=== PATIENT | male | born 1980 | race Caucasian/White ===

== ENCOUNTER 2018-11-12 20:51 | Emergency (ER) | payer BC ==
[2018-11-12 21:07] VITALS: BP 132/67
[2018-11-12] MEDS ORDERED: Tetracaine 0.5% OPTH.SOL 4 ML* 1 DROP BTL RIGHT EYE ONE (21:13)
[2018-11-12] MEDS ORDERED: Fluorescein Sodium TOPICAL* 1 MG TEST STRIP OPHTHALMIC ONE (21:15)
[2018-11-12] MEDS ORDERED: Erythromycin OPTH OINT* APPLIC OINT RIGHT EYE ONE (21:17)
--- NOTE | 2018-11-12 21:21 | UC ---
Eye Complaint HPI - HPI Summary HPI Summary: R eye irritation after feeling like something blew in it. Feels discomfort when he blinks. denies vision changes. feels it is tearing up in excess. denies pain w/ EOM. - History of Current Complaint Chief Complaint: UCEye Stated Complaint: RT EYE COMPLAINT Time Seen by Provider: 11/12/18 20:57 Hx Obtained From: Patient Onset/Duration: Sudden Onset Timing: Constant Pain Intensity: 0 Pain Scale Used: 0-10 Numeric Location of Injury: Eye Lid (upper) Character: Sharp Aggravating Factor(s): Blinking Alleviating Factor(s): Nothing Associated Signs And Symptoms: Negative: Photophobia, Vision Impairment Right, Vision Impairment Left, Fever - Allergies/Home Medications Allergies/Adverse Reactions: Allergies Allergy/AdvReac Type Severity Reaction Status Date / Time No Known Allergies Allergy Verified 11/12/18 21:07 Home Medications: Home Medications NK [No Home Medications Reported] 11/12/18 [History Confirmed 11/12/18] PMH/Surg Hx/FS Hx/Imm Hx - Additional Past Medical History Additional PMH: nothing chronic. Previously Healthy: Yes - Surgical History Surgical History: None Surgery Procedure, Year, and Place: denies - Family History Known Family History: Positive: Hypertension - Social History Alcohol Use: None Substance Use Type: None Smoking Status (MU): Never Smoked Tobacco - Immunization History Most Recent Tetanus Shot: 11/2012 Review of Systems All Other Systems Reviewed And Are Negative: Yes Constitutional: Negative: Fever Skin: Negative: Rash Eyes: Positive: Other - R eye discomfort.. Negative: Blurred Vision Respiratory: Positive: Negative Cardiovascular: Positive: Negative Neurological: Negative: Headache Physical Exam Triage Information Reviewed: Yes Appearance: Well-Appearing Vital Signs: Initial Vital Signs Temp 97.9 F 11/12/18 21:03 Pulse 55 11/12/18 21:03 Resp 15 11/12/18 21:03 BP 132/67 11/12/18 21:03 Pulse Ox 100 11/12/18 21:03 Vital Signs Reviewed: Yes Eyes: Positive: Conjunctiva Inflamed - R, Discharge - tearing R eye, Other: - R eye evaluated for abrasion w/ saini lamp/fluorescein, no obvious abrasion noted. PERRLA ENT: Positive: TMs normal Eye Complaint Course/Dx - Course Course Of Treatment: Sudden R eye discomfort w/ no changes to vision. suspected micro FB and after tetracaine used R eye was flushed. no obvious abrasion noted but will tx empirically w/ topical antibx. He is to go to eye doctor if not improving. pt wanted to take tetracaine home to help him sleep, we discussed side effects. - Differential Dx/Diagnosis Differential Diagnosis/HQI/PQRI: Corneal Abrasion, Foreign Body Provider Diagnosis: Discomfort of right eye Discharge - Sign-Out/Discharge Documenting (check all that apply): Patient Departure All imaging exams completed and their final reports reviewed: No Studies - Discharge Plan Condition: Good Disposition: HOME Patient Education Materials: Corneal Abrasion (DC) Referrals: Rika Barclay MD [Medical Doctor] - Additional Instructions: You may use the drops tonight. - Billing Disposition and Condition Condition: GOOD Disposition: Home - Attestation Statements Provider Attestation: Per institutional requirements, I have reviewed the chart, however, I was not consulted specifically or made aware of this patient by the midlevel provider. I did not personally evaluate, interact with , or disposition this patient.
== END 2018-11-12 21:39 | disposition home or self-care (01) ==
LOC: UCCORT 20:51
DX: H57.89 Other specified disorders of eye and adnexa (principal)
CPT/HCPCS: 99212; A9270-GY; G0463

== ENCOUNTER 2019-03-21 08:50 | Emergency (ER) | payer BC ==
[2019-03-21 09:12] VITALS: BP 124/62
--- NOTE | 2019-03-21 09:42 | UC ---
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 Thinks attached for 24 hours. Advised by MD's he worked with in the past that he should have 30 days of doxy for every tick bite. No hx of heart block, chronic arthritis or neuro Lyme. - History of Current Complaint Chief Complaint: UCSkin Time Seen by Provider: 03/21/19 09:41 Stated Complaint: TICK Hx Obtained From: Patient Onset/Duration: Sudden Onset, Lasting Hours Skin Exposure Onset/Duration: Hours Ago Timing: Constant Onset Severity: Mild Current Severity: None Pain Intensity: 0 Location: Discrete Character: Redness Aggravating Factor(s): Nothing Alleviating Factor(s): Nothing Associated Signs & Symptoms: Positive: Negative Related History: Insect Bite/Sting - Allergy/Home Medications Allergies/Adverse Reactions: Allergies Allergy/AdvReac Type Severity Reaction Status Date / Time No Known Allergies Allergy Verified 03/21/19 09:12 PMH/Surg Hx/FS Hx/Imm Hx Previously Healthy: Yes - Lyme disease about 4 years ago - Surgical History Surgical History: None Surgery Procedure, Year, and Place: denies - Family History Known Family History: Positive: Hypertension - Social History Occupation: Employed Full-time Lives: With Family Alcohol Use: None Substance Use Type: None Smoking Status (MU): Never Smoked Tobacco - Immunization History Most Recent Tetanus Shot: 11/2012 Review of Systems All Other Systems Reviewed And Are Negative: Yes Constitutional: Positive: Negative Skin: Positive: Other - tick bite Eyes: Positive: Negative Gastrointestinal: Positive: Negative Motor: Positive: Negative Neurovascular: Positive: Negative Musculoskeletal: Positive: Negative Neurological: Positive: Negative Is Patient Immunocompromised?: No Physical Exam Triage Information Reviewed: Yes Appearance: Well-Appearing, No Pain Distress Vital Signs: Initial Vital Signs Temp 98 F 03/21/19 09:07 Pulse 54 03/21/19 09:07 Resp 16 03/21/19 09:07 BP 124/62 03/21/19 09:07 Pulse Ox 100 03/21/19 09:07 Respiratory: Positive: Lungs clear, Normal breath sounds Cardiovascular: Positive: RRR, No Murmur Musculoskeletal Exam: Normal Neurological Exam: Normal Psychological Exam: Normal Skin Exam: Other - erythematous area about 5 mm upper inner thigh Course/Dx - Course Course Of Treatment: single dose of doxy + observe - Differential Diagnoses - Skin Complaint Differential Diagnoses: Tick Born Illness, Other - tick bite - Diagnoses Provider Diagnosis: Tick bite Discharge ED - Sign-Out/Discharge Documenting (check all that apply): Patient Departure All imaging exams completed and their final reports reviewed: No Studies - Discharge Plan Condition: Good Disposition: HOME Prescriptions: Doxycycline Hyclate 200 mg PO ONCE #2 tablet. Patient Education Materials: Tick Bite (ED) Referrals: Babs Willis MD [Primary Care Provider] - Additional Instructions: The single dose of doxycycline is about 80% effective in decreasing the transmission of Lyme should this tick have carried the bacteria. Follow up if you develop symptoms, and you can touch base with the physician who treated your Lyme disease in the past should you want to discuss treatment. - Billing Disposition and Condition Condition: GOOD Disposition: Home
== END 2019-03-21 10:17 | disposition home or self-care (01) ==
LOC: UCCORT 08:50
DX: S70.369A Insect bite (nonvenomous), unspecified thigh, initial encounter (principal); Z86.19 Personal history of other infectious and parasitic diseases; W57.XXXA Bitten or stung by nonvenomous insect and other nonvenomous arthropods, initial encounter; Y92.9 Unspecified place or not applicable
CPT/HCPCS: 99212; G0463

== ENCOUNTER 2019-05-30 08:39 | Emergency (ER) | payer BC ==
[2019-05-30 08:58] VITALS: BP 112/63
[2019-05-30] MEDS ORDERED: Al Hydrox/Mg Hydrox/Simet LIQ* 30 ML UDC PO ONE (09:12)
--- NOTE | 2019-05-30 09:21 | ED ---
Abdominal Pain/Male - HPI Summary HPI Summary: 39-year-old white male presents with epigastric pain and cramping associated with nausea and watery diarrhea 1 week. Denies fever chills, vomiting, patient took Tums which exacerbated his diarrhea but denies previous history of acid reflux. - History of Current Complaint Chief Complaint: UCGI Stated Complaint: STOMACH/ESOPHAGUS Time Seen by Provider: 05/30/19 08:54 Hx Obtained From: Patient Onset/Duration: Lasting Days Timing: Constant, Intermittent Severity Initially: Moderate Severity Currently: Moderate Pain Intensity: 0 - Allergies/Home Medications Allergies/Adverse Reactions: Allergies Allergy/AdvReac Type Severity Reaction Status Date / Time No Known Allergies Allergy Verified 05/30/19 08:55 PMH/Surg Hx/FS Hx/Imm Hx Previously Healthy: Yes Endocrine/Hematology History: Denies: Hx Diabetes, Hx Thyroid Disease Cardiovascular History: Denies: Hx Hypertension, Hx Pacemaker/ICD Respiratory History: Denies: Hx Asthma, Hx Chronic Obstructive Pulmonary Disease (COPD) GI History: Denies: Hx Ulcer Sensory History: Denies: Hx Hearing Aid Psychiatric History: Denies: Hx Panic Disorder - Surgical History Surgery Procedure, Year, and Place: denies Infectious Disease History: No Infectious Disease History: Denies: Hx Clostridium Difficile, Hx Hepatitis, Hx Human Immunodeficiency Virus (HIV), Hx of Known/Suspected MRSA, Hx Shingles, Hx Tuberculosis, Hx Known/ Suspected VRE, Hx Known/Suspected VRSA, History Other Infectious Disease, Traveled Outside the [place] in Last 30 Days - Family History Known Family History: Positive: Hypertension - Social History Alcohol Use: None Substance Use Type: Reports: None Smoking Status (MU): Never Smoked Tobacco Review of Systems Constitutional: Negative Eyes: Negative ENT: Negative Cardiovascular: Negative Respiratory: Negative Positive: Abdominal Pain, Diarrhea, Nausea Genitourinary: Negative Musculoskeletal: Negative Skin: Negative All Other Systems Reviewed And Are Negative: Yes Physical Exam - Summary Physical Exam Summary: Vital Signs Reviewed: Yes Eyes: Positive: Conjunctiva Clear ENT: Positive: Normal ENT inspection, Pharynx normal Respiratory: Positive: Normal breath sounds, No respiratory distress Cardiovascular: Positive: RRR Abdomen Description: Positive: Nontender, mild hyperactive BS, no guarding/ rebound Musculoskeletal: Positive: ROM Intact, No Edema Neurological: Positive: Alert Psychological Exam: Normal Skin Exam: Berta Vital Signs On Initial Exam: Initial Vitals Temp Pulse Resp BP Pulse Ox 36.2 C 51 16 112/63 100 05/30/19 08:52 05/30/19 08:52 05/30/19 08:52 05/30/19 08:52 05/30/19 08:52 Diagnostics - Vital Signs Vital Signs Temp Pulse Resp BP Pulse Ox 05/30/19 08:52 36.2 C 51 16 112/63 100 - Laboratory Lab Statement: Any lab studies that have been ordered have been reviewed, and results considered in the medical decision making process. Abdominal Pain Male Course/Dx - Course Assessment/Plan: Impression- gastritis in setting of viral gastroenteritis, sx tx with antacids and PO hydration, if sx worsen, go to ED for further w/u - Diagnoses Provider Diagnoses: Gastroenteritis and colitis, viral Discharge ED - Sign-Out/Discharge Documenting (check all that apply): Patient Departure All imaging exams completed and their final reports reviewed: No Studies - Discharge Plan Condition: Stable Disposition: HOME Prescriptions: Ranitidine TAB (NF) [Zantac TAB (NF)] 150 mg PO BID PRN 5 Days #10 tab PRN Reason: Heartburn Patient Education Materials: Epigastric Pain (ED), Abdominal Pain (ED), Gastroenteritis (ED) Referrals: Babs Willis MD [Primary Care Provider] - - Billing Disposition and Condition Condition: STABLE Disposition: Home
== END 2019-05-30 09:33 | disposition home or self-care (01) ==
LOC: UCCORT 08:39
DX: A08.4 Viral intestinal infection, unspecified (principal)
CPT/HCPCS: 96372; 99212; A9270-GY; G0463

== ENCOUNTER 2019-09-12 15:38 | Emergency (ER) | payer BC ==
--- NOTE | 2019-09-12 16:18 | UC ---
[facility] HPI HPI Summary: 39 yo requests Telehealth visit for evaluation. He has 6 day history of cough, without fever, with fatigue and headache secondary to coughing. His was recently treated with azithromycin for similar illness and responded well. He is following the same clinical course. Cough productive of green sputum in the morning, with persistent post nasal drainage and sore throat. he has been using Nyquil, mucinex and Dayquil with incomplete response of cough to meds. he has done daily temp checks and has remained in the range of 97-98. Stayed home from work 3 days this week but did not improve as anticipated. No infectious contacts aside from his , who tested negative for COVID. He does not want to be tested. No hx of asthma, tolerating normal activities. [facility] PMH Previously Healthy: Yes Endocrine/Hematology History: Denies: Hx Diabetes, Hx Thyroid Disease Cardiovascular History: Denies: Hx Hypertension, Hx Pacemaker/ICD Respiratory History: Denies: Hx Asthma, Hx Chronic Obstructive Pulmonary Disease (COPD) GI History: Denies: Hx Ulcer Sensory History: Denies: Hx Hearing Aid Psychiatric History: Denies: Hx Panic Disorder - Surgical History Surgery Procedure, Year, and Place: denies Infectious Disease History: No - Family History Known Family History: Positive: Other - mother has had breast cancer; father has had renal cell carcinoma - Social History Occupation: Employed Full-time Lives: With Family Alcohol Use: None Substance Use Type: Reports: None Smoking Status (MU): Never Smoked Tobacco [facility] ROS All Other Systems Reviewed And Are Negative: Yes Positive: Fatigue - now improved. Negative: Fever Eyes: Negative Positive: Sore Throat Cardiovascular: Negative Positive: Cough. Negative: Shortness Of Breath Gastrointestinal: Negative Genitourinary: Negative Musculoskeletal: Negative Negative: Arthralgia, Myalgia Skin: Negative Neurological/Mental Status: Negative Negative: Headache Psychological: Normal [facility] PE Telehealth Physical Exam: Appears comfortable seated in vehicle, speaking easily, with normal color and no rapid breathing. Occasional coughing observed. [facility] Course/Dx Assessment/Plan: Discussed symptoms and his concern that he has the same illness as his had recently. He consented to a Telehealth visit and is aware that he has not had vital signs. Agrees to treatment with azithromycin for suspected bronchitis. Provider Diagnoses: [facility] Disposition Provider Recommendation for Treatment: Urgent Care Telehealth Visit: Patient Consented Verbally to Telehealth Visit Telehealth Patient Statement: The patient should understand that they are communicating with their provider via a secure communication platform and that all the same privacy and confidentiality rules apply. They will also be responsible for copayments or coinsurances that apply to any Telehealth visit. Patient Identifiers: 2 Patient Identifiers Verified for Telehealth Visit - name and date of Telehealth Visit Start Time: 16:05 Telehealth Visit End Time: 16:15 Telehealth Provider Attestation: The above services were appropriate to provide in a Telehealth setting. - Attestation Statements Document Initiated by Nerissa: No
== END 2019-09-12 16:28 | disposition home or self-care (01) ==
LOC: UCCORT 15:38
DX: J40 Bronchitis, not specified as acute or chronic (principal)
CPT/HCPCS: 99212; G0463